=== PATIENT | female | born 1985 | race Native Hawaiian/Other Pacific Islander ===

== ENCOUNTER 2016-09-20 09:59 | Outpatient (CLI) | payer OTHER ==
[2016-09-20 11:04] LABS: PLATELET COUNT 330 K/uL (152-353)
[2016-09-20 11:35] LABS: POTASSIUM 3.8 mmol/L (3.6-5.2); SODIUM 135 mmol/L (136-145)
== END 2016-09-20 19:16 | disposition home or self-care (01) ==
LOC: LABW 09:59
PROVIDERS: Family Medicine
DX: R51 Headache (principal); M54.2 Cervicalgia; M25.511 Pain in right shoulder; K21.9 Gastro-esophageal reflux disease without esophagitis; R82.99 Other abnormal findings in urine
CPT/HCPCS: 36415; 80053; 81000; 83735; 84439; 84443; 85027; 87086; 87088

== ENCOUNTER 2019-01-26 16:58 | Outpatient (CLI) | payer OTHER | END 2019-01-26 19:33 | disposition home or self-care (01) | LOC: RAD 16:58 | DX: M54.6 Pain in thoracic spine (principal) ==

== ENCOUNTER 2019-08-18 11:40 | Inpatient (IN) | payer OTHER ==
[~2019-08-18] VITALS: Ht 162.6 cm; Wt 71.8 kg
[2019-08-18 13:43] LABS: PLATELET COUNT 294 K/uL (152-353)
[2019-08-18 13:54] LABS: POTASSIUM 3.7 mmol/L (3.6-5.2)
[2019-08-18 15:20] VITALS: BP 94/50; TEMP 98.4; Ht 162.6 cm; Wt 71.8 kg
[2019-08-18 16:00] VITALS: BP 97/58; TEMP 98.7
[2019-08-18 20:00] VITALS: BP 105/65; TEMP 98.2
[2019-08-18 23:56] VITALS: BP 107/60; TEMP 98.3
[2019-08-19 04:00] VITALS: BP 111/64; TEMP 98.2
[2019-08-19 06:08] LABS: PLATELET COUNT 226 K/uL (152-353)
[2019-08-19 06:25] LABS: POTASSIUM 4.2 mmol/L (3.6-5.2)
[2019-08-19 08:00] VITALS: BP 94/65; TEMP 98.2
[2019-08-19 12:00] VITALS: BP 97/61; TEMP 98.4
[2019-08-19 16:00] VITALS: BP 113/66; TEMP 98.9
[2019-08-19 19:59] VITALS: BP 106/71; TEMP 99.1
[2019-08-19 23:51] VITALS: BP 100/53; TEMP 99.1
[2019-08-20 04:00] VITALS: BP 110/69; TEMP 98.7
[2019-08-20 08:00] VITALS: BP 105/67; TEMP 98.6
[2019-08-20 10:03] LABS: PLATELET COUNT 223 K/uL (152-353)
[2019-08-20 10:11] LABS: POTASSIUM 3.5 mmol/L (3.6-5.2)
[2019-08-20 12:00] VITALS: BP 108/71; TEMP 98.6
== END 2019-08-20 14:50 | disposition home or self-care (01) | DRG 759 ==
LOC: MED/SURG 11:40
PROVIDERS: ADMIT Family Medicine
DX: N73.8 Other specified female pelvic inflammatory diseases (principal); N20.0 Calculus of kidney; E66.8 Other obesity; D72.828 Other elevated white blood cell count; R10.31 Right lower quadrant pain
CPT/HCPCS: 36415; 80048; 80053; 80307; 81025; 83605; 83735; 84100; 85027; 87040; 87490; 87590; J1885; J2060; J2175; J2543; J2550; J3490; Q9963

== ENCOUNTER 2021-12-18 12:29 | Outpatient (CLI) | payer OTHER ==
[2021-12-18 13:30] LABS: PLATELET COUNT 346 K/uL (152-353)
[2021-12-18 13:32] LABS: POTASSIUM 4.6 mmol/L (3.6-5.2)
== END 2021-12-18 20:55 | disposition home or self-care (01) ==
LOC: US 12:29
PROVIDERS: ATTEND Nurse Practitioner Family
DX: S70.11XD Contusion of right thigh, subsequent encounter (principal); M25.552 Pain in left hip; S22.43XD Multiple fractures of ribs, bilateral, subsequent encounter for fracture with routine healing; Y92.89 Other specified places as the place of occurrence of the external cause; T07.XXXD Unspecified multiple injuries, subsequent encounter
CPT/HCPCS: 80053; 82550; 82553; 84484; 85027; 85379

== ENCOUNTER 2021-12-18 14:34 | Emergency (ER) | payer OTHER ==
[~2021-12-18] VITALS: Ht 162.6 cm; Wt 73.9 kg
[2021-12-18 18:10] VITALS: BP 115/72; TEMP 98.2
== END 2021-12-18 18:10 | disposition home or self-care (01) ==
LOC: ED 14:34
DX: S22.32XA Fracture of one rib, left side, initial encounter for closed fracture (principal); S42.002A Fracture of unspecified part of left clavicle, initial encounter for closed fracture; N39.0 Urinary tract infection, site not specified; V86.65XA Passenger of 3- or 4- wheeled all-terrain vehicle (ATV) injured in nontraffic accident, initial encounter; Y92.89 Other specified places as the place of occurrence of the external cause
CPT/HCPCS: 81000; 81025; 87077; 87086; 87088; 87185; 93005; 96360; 96365; 96375; 99284; J0696; J2270; J2405; Q9963

== ENCOUNTER 2022-01-09 11:18 | Outpatient (CLI) | payer OTHER | END 2022-01-09 19:15 | disposition home or self-care (01) | LOC: RAD 11:18 | PROVIDERS: ATTEND Nurse Practitioner Family | DX: S70.11XD Contusion of right thigh, subsequent encounter (principal); M25.571 Pain in right ankle and joints of right foot; Y92.89 Other specified places as the place of occurrence of the external cause ==

== ENCOUNTER 2022-01-15 13:48 | Outpatient (CLI) | payer OTHER | END 2022-01-15 20:03 | disposition home or self-care (01) | LOC: RAD 13:48 | PROVIDERS: ATTEND Physician Assistant | DX: M25.512 Pain in left shoulder (principal) ==

== ENCOUNTER 2022-02-12 14:03 | Outpatient (CLI) | payer OTHER | END 2022-02-12 20:26 | disposition home or self-care (01) | LOC: RAD 14:03 | PROVIDERS: ATTEND Physician Assistant | DX: M25.512 Pain in left shoulder (principal) ==

== ENCOUNTER 2022-03-12 13:38 | Outpatient (CLI) | payer OTHER | END 2022-03-12 21:39 | disposition home or self-care (01) | LOC: RAD 13:38 | PROVIDERS: ATTEND Physician Assistant | DX: M25.512 Pain in left shoulder (principal) ==

== ENCOUNTER 2022-05-09 12:12 | Outpatient (CLI) | payer OTHER | END 2022-05-09 19:55 | disposition home or self-care (01) | LOC: RAD 12:12 | PROVIDERS: ATTEND Family Medicine | DX: M25.571 Pain in right ankle and joints of right foot (principal); M25.512 Pain in left shoulder; Z87.81 Personal history of (healed) traumatic fracture; Z09 Encounter for follow-up examination after completed treatment for conditions other than malignant neoplasm ==

== ENCOUNTER 2022-06-21 12:32 | Outpatient (CLI) | payer OTHER | END 2022-06-21 17:00 | disposition home or self-care (01) | LOC: RAD 12:32 | PROVIDERS: ATTEND Family Medicine | DX: M25.512 Pain in left shoulder (principal) ==

== ENCOUNTER 2022-08-02 12:51 | Outpatient (CLI) | payer OTHER | END 2022-08-02 19:41 | disposition home or self-care (01) | LOC: MRI 12:51 | PROVIDERS: ATTEND Physician Assistant | DX: M25.512 Pain in left shoulder (principal); Z68.28 Body mass index [BMI] 28.0-28.9, adult ==

== ENCOUNTER 2022-10-18 07:53 | Outpatient (CLI) | payer OTHER | END 2022-10-18 19:05 | disposition home or self-care (01) | LOC: RAD 07:53 | PROVIDERS: ATTEND Student in an Organized Health Care Education/Training Program | DX: M54.12 Radiculopathy, cervical region (principal); M47.812 Spondylosis without myelopathy or radiculopathy, cervical region; M54.16 Radiculopathy, lumbar region; M47.816 Spondylosis without myelopathy or radiculopathy, lumbar region; M48.062 Spinal stenosis, lumbar region with neurogenic claudication; M54.14 Radiculopathy, thoracic region; M47.814 Spondylosis without myelopathy or radiculopathy, thoracic region ==